=== PATIENT | female | born 1980 | race African-American/Black ===

== ENCOUNTER 2019-01-14 10:56 | Emergency (ER) | payer BC ==
--- OUTSIDE RECORDS SUMMARY | 2019-01-14 11:03 | XMS REPORT ---
:1980 Author Organization [employer] Care Team Providers Name Role Phone Tl Bustos Provider Role Unavailable Allergies No Known Allergies Problems Problem Type Condition Code Onset Dates Condition Status Problem Benign hypertension I10 Active Problem BMI 40.0-44.9, adult Z68.41 Active Problem Pure hypercholesterolemia E78.00 Active Problem Hyperlipidemia E78.5 Active Problem Atrial fibrillation I48.91 Active Medications No Known Medications Results No Known Results Summary Purpose eClinicalWorks Submission
--- OUTSIDE RECORDS SUMMARY | 2019-01-14 11:03 | XMS REPORT ---
:1980 Author Organization [employer] Care Team Providers Name Role Phone Tl Bustos Provider Role Unavailable Allergies No Known Allergies Problems Problem Type Condition Code Onset Dates Condition Status Assessment Pure hypercholesterolemia E78.00 Active Assessment Uterine leiomyoma, unspecified D25.9 Active location Assessment Benign hypertension I10 Active Problem Benign hypertension I10 Active Problem BMI 40.0-44.9, adult Z68.41 Active Problem Pure hypercholesterolemia E78.00 Active Assessment Cervicalgia M54.2 Active Problem Hyperlipidemia E78.5 Active Problem Atrial fibrillation I48.91 Active Medications Medication Code Code Instructions Start End Status Dosage System Date Date Lisinopril [facility] 70496723590 20 MG Orally December Active 1 tablet Once a day 2018 Diclofenac Sodium [facility] 78140033934 1 % December Active as Transdermal , directed Twice a day 2018 2018 Vitamin E [facility] 63523-05976 Active not defined [place] 3 [facility] 47678-52575 Active not defined Tramadol HCl [facility] 67555718847 50 MG Orally December Active as [id number] prn , directed 2018 2018 Phentermine HCl [facility] 08795073497 15 MG Orally Active 1 capsule Once a day Hydrochlorothiazide ND 66891564530 25 MG Orally Active 1 tablet Once a day in the morning Selenium [facility] [address]-43 Active not defined Fluticasone [facility] 24860392389 50 MCG/ACT Active 1 spray in Propionate Nasally Once a each day nostril Loratadine [facility] 48910253525 10 MG Orally Active 1 tablet Once a day Tylenol ND 59733748912 325 MG Orally December Active 2tablet every 8 hours , scheduled 2018 2018 Simvastatin ND 78363793228 20 MG Orally Active 1 tablet Once a day in the evening Results No Known Results Summary Purpose eClinicalWorks Submission
--- OUTSIDE RECORDS SUMMARY | 2019-01-14 11:03 | XMS REPORT ---
:1980 Author Organization [facility] Address [address] [place] [address] Care Team Providers Name Role Phone Unavailable Unavailable Unavailable Payers Payer Name Policy Type Policy Number Effective Date Expiration Date Problems This patient has no known problems. Allergies, Adverse Reactions, Alerts This patient has no known allergies or adverse reactions. Medications This patient has no known medications.
[2019-01-14] MEDS ORDERED: IBUPROFEN 400 MG TAB ONE (11:38)
[2019-01-14] MEDS ORDERED: IBUPROFEN 200 MG TAB PO ONE (11:38)
--- NOTE | 2019-01-14 11:44 | RAD REPORT ---
EXAM DESCRIPTION: CT - C Spine Wo Con - 01/14/2019 11:33 am CLINICAL HISTORY: PAIN Pain and radiculopathy. COMPARISON: Neck Soft Tissue dated 01/07/2019 FINDINGS: The cervical vertebral body heights and disc spaces are maintained. Mild lower cervical sp ondylosis. No evidence of acute cervical spine fracture or subluxation. Prevertebral soft tissues are normal in thickness. IMPRESSION: Negative for acute cervical spine abnormality. All CT scans are performed using dose optimization technique as appropriate and may include automated exposure control or mA/KV adjustment according to patient size.
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
[2019-01-14] MEDS ORDERED: AMLODIPINE 5 MG TAB ONE (12:00)
== END 2019-01-14 12:02 | disposition home or self-care (01) ==
LOC: ER 10:56
DX: S16.1XXA Strain of muscle, fascia and tendon at neck level, initial encounter (principal); M47.892 Other spondylosis, cervical region; I10 Essential (primary) hypertension; Z88.8 Allergy status to other drugs, medicaments and biological substances
CPT/HCPCS: 72125; 99283